=== PATIENT | male | born 1970 | race Caucasian/White ===

== ENCOUNTER 2019-07-03 23:05 | Emergency (ER) | payer MEDICAID ==
[~2019-07-03] VITALS: Ht 175.3 cm; Wt 105.0 kg
[~2019-07-03 23:05] MED LIST: ALBU8.5H8 IH; FAMO20TA8 PO; FLUT1DIS4 INH; HYDR-4383 PO; NAPR-1154 PO
--- NOTE | 2019-07-03 23:10 | NUR ---
Unknown date of last tetanus booster
[2019-07-03] MEDS ORDERED: HYDROcodone/acetaminophen 5mg/325mg tablet PO ONE (23:15)
[2019-07-03] MEDS ORDERED: TETanus/Pertussis (Acell)/Diphther VAC/PF (Tdap-Adult) 0.5ml syringe IMVAC ONE (23:15)
[2019-07-03] MEDS ORDERED: ondansetron 4mg rapidly disintigrating tab PO ONE (23:15)
--- NOTE | 2019-07-03 23:29 | NUR ---
Scanner in room not working. No meds scanned
[2019-07-03] MEDS ORDERED: BACDS PO (23:33)
[2019-07-03] MEDS ORDERED: ALBU8HFA PO (23:33)
[2019-07-03] MEDS ORDERED: CEPH250T PO (23:33)
[2019-07-03] MEDS ORDERED: IBUP-1984 PO (23:33)
[2019-07-03 23:44] VITALS: BP 134/78
== END 2019-07-03 23:45 | disposition home or self-care (01) ==
LOC: ER 23:05
DX: S91.332A Puncture wound without foreign body, left foot, initial encounter (principal); J45.909 Unspecified asthma, uncomplicated; G89.29 Other chronic pain; Z88.0 Allergy status to penicillin; W22.8XXA Striking against or struck by other objects, initial encounter; Y93.89 Activity, other specified; Y92.89 Other specified places as the place of occurrence of the external cause; Y99.9 Unspecified external cause status
CPT/HCPCS: 73630; 90471; 90715; 99283

== ENCOUNTER 2022-10-25 21:27 | Emergency (ER) | payer MEDICAID ==
[~2022-10-25] VITALS: Ht 175.3 cm; Wt 109.1 kg
[~2022-10-25 21:27] MED LIST changes: +ALBU8.5H17 IH; -ALBU8.5H8 IH
[2022-10-25 22:08] VITALS: BP 125/70; PULSE 55; RESP 14; TEMP 97.8; O2SAT 96
[2022-10-25 23:12] LABS: BILIRUBIN,URINE NEGATIVE (Neg); COLOR,URINE YELLOW (Yellow); GLUCOSE, URINE NEGATIVE (Neg); KETONES,URINE NEGATIVE (Neg); LEUKOCYTE ESTERASE ,URINE NEGATIVE (Neg); NITRITES, URINE NEGATIVE (Neg); OCCULT BLOOD,URINE NEGATIVE (Neg); PROTEIN,URINE NEGATIVE (Neg)
[2022-10-25 23:18] LABS: CLARITY,URINE SLIGHTLY CLOUDY (Clear); UA COLLECTION TYPE CLN CATCH MIDSTREAM
[2022-10-25 23:25] LABS: BACTERIA,URINE NONE SEEN /HPF (Neg); MUCUS STRANDS MANY /LPF (Neg); RBC,URINE 0-2 /HPF (0-2)
[2022-10-25 23:26] LABS: SQUAMOUS EPITHELIAL CELL,UR FEW /LPF (FEW)
[2022-10-26] MEDS ORDERED: acetaminophen 325mg tablet PO ONE (01:35)
[2022-10-26] MEDS ORDERED: ketorolac trometh inj. 60 MG/2 ML VIAL IM ONE (01:35)
[2022-10-26] MEDS ORDERED: HYDR-3965 PO ×2 (02:21→02:24)
[2022-10-26] MEDS ORDERED: SULF1TAB48 PO (02:22)
== END 2022-10-26 02:36 | disposition home or self-care (01) ==
LOC: ER 21:27
DX: M54.59 Other low back pain (principal); J45.909 Unspecified asthma, uncomplicated; Z88.0 Allergy status to penicillin; Z79.899 Other long term (current) drug therapy
CPT/HCPCS: 81001; 87088; 96372; 99283; J1885

== ENCOUNTER 2023-02-07 22:15 | Emergency (ER) | payer MEDICAID ==
[~2023-02-07] VITALS: Ht 172.7 cm; Wt 110.0 kg
[2023-02-07] MEDS ORDERED: fluorescein sod 1mg ophthalmic strip EACHEYE ONE (22:25)
[2023-02-07] MEDS ORDERED: proparacaine 0.5% ophthalmic drops 15ml RIGHTEYE ONE (23:10)
[2023-02-07] MEDS ORDERED: polymyxin B sulf/tmp ophth drops 10ml RIGHTEYE STA (23:38)
[2023-02-07] MEDS ORDERED: POLOS RIGHTEYE (23:38)
[2023-02-08 00:07] VITALS: BP 130/75; PULSE 62; RESP 16; TEMP 98.7; O2SAT 98
== END 2023-02-08 00:12 | disposition home or self-care (01) ==
LOC: ER 22:16
DX: T15.01XA Foreign body in cornea, right eye, initial encounter (principal); J45.909 Unspecified asthma, uncomplicated; G89.29 Other chronic pain; Z88.0 Allergy status to penicillin; Z79.899 Other long term (current) drug therapy; X58.XXXA Exposure to other specified factors, initial encounter; Y93.89 Activity, other specified; Y92.89 Other specified places as the place of occurrence of the external cause; Y99.8 Other external cause status
CPT/HCPCS: 65220; 99284; J3490